=== PATIENT | female | born 1990 | race Caucasian/White ===

== ENCOUNTER 2018-03-06 09:34 | Emergency (ER) | payer BC ==
[~2018-03-06] VITALS: Ht 157.5 cm; Wt 59.0 kg
[2018-03-06] MEDS ORDERED: SYNTHROID50 MCG PO (09:49)
[2018-03-06] MEDS ORDERED: BRINTELLIX10 MG PO (09:49)
[2018-03-06 10:21] LABS: URINE BILIRUBIN NEGATIVE (Negative); URINE BLOOD NEGATIVE (Negative); URINE CLARITY CLEAR; URINE COLOR YELLOW; URINE GLUCOSE-RANDOM NEGATIVE (Negative); URINE KETONES NEGATIVE (Negative); URINE LEUKOCYTES-REFLEX 1+ (Negative); URINE NITRITE-REFLEX NEGATIVE (Negative); URINE PROTEIN NEGATIVE (Negative); URINE SPECIFIC GRAVITY <= 1.005 (1.005-1.030); URINE UROBILINOGEN 0.2 E.U./dl (0.2-1.0)
[2018-03-06 10:22] LABS: ABSOLUTE LYMPHOCYTES 1.5 thou/uL (0.8-5.3); ABSOLUTE MONOCYTES 0.5 thou/uL (0.0-1.2); ABSOLUTE NEUTROPHILS 4.7 thou/uL (1.6-8.1); BASOPHILS 0.5 %; EOSINOPHILS 0.6 %; HEMATOCRIT 42.4 % (37.0-47.0); HEMOGLOBIN 14.1 gm/dL (12.0-15.0); LYMPHOCYTES 22.4 %; MCH 28.9 pg (26.0-34.0); MCHC 33.2 g/dL (28.0-37.0); MCV 87.2 fL (80.0-100.0); MONOCYTES 7.1 %; MPV 8.9 fl. (7.2-11.1); NUCLEATED RBCS 0 /100WBC; PLATELET COUNT* 316 thou/uL (150-400); POLYS 69.4 %; RBC 4.86 mil/uL (4.20-5.00); RDW-CV 13.5 % (10.5-14.5); WBC 6.8 thou/uL (4.0-11.0)
[2018-03-06] MEDS ORDERED: FOLBIC RF TABL1 EACH PO (10:24)
[2018-03-06 10:33] LABS: BACTERIA-REFLEX 1-9 Few /HPF (None Seen); CASTS None Seen /LPF (None Seen); CRYSTALS None Seen /LPF (None Seen); MUCUS 0-3 Light strn/LPF (None Seen); SQUAMOUS 4-10 Moderate /LPF (0-3); URINE RBC 0-2 Rare /HPF (0-2); URINE WBC-REFLEX 6-15 Few /HPF (0-5)
[2018-03-06 10:33] LABS: APTT 26.6 Seconds (25.0-31.3); CALCIUM 9.2 mg/dL (8.5-10.1); CREATININE 0.9 mg/dL (0.6-1.3); POTASSIUM 4.5 mmol/L (3.5-5.1)
[2018-03-06 10:37] LABS: ALBUMIN 3.8 g/dL (3.4-5.0); TOTAL BILIRUBIN 0.4 mg/dL (<0.1-1.0); TOTAL PROTEIN 7.4 g/dL (6.4-8.2)
[2018-03-06 10:37] LABS: AMP/METHAMP Negative (Negative); BARBITURATES Negative (Negative); BENZODIAZEPINES Negative (Negative); COCAINE Negative (Negative); METHADONE Negative (Negative); OPIATES Negative (Negative); PCP Negative (Negative); THC Negative (Negative)
[2018-03-06 10:40] LABS: ACETAMINOPHEN < 2 ug/mL (10-30); ALCOHOL < 10 mg/dL (<10); SALICYLATE < 2.8 mg/dL (2.8-20.0)
[2018-03-06] MEDS ORDERED: CIPROFLOXACIN500 M1 PO (11:07)
[2018-03-06 11:28] VITALS: BP 115/72
--- NOTE | 2018-03-06 17:27 | EKG ---
[place] [address] ELECTROCARDIOGRAM REPORT Name: CHRISTI ALVAREZ [id number] Admission: 03/06/18 Attend Phys: Discharge: 03/06/18 Date of : 88 Report #: [id number] THIS REPORT FOR: //name// [facility] ED Test Date: 2018-03-06 Test Time: 10:27:28 Pat Name: CHRISTI ALVAREZ Department: Room: Gender: F [employer] Operator: : 1990 Requested By: Alex Hemphill Order Number: [id number] MD: Jeffrey Holland Measurements Intervals [place] Rate: 73 P: 28 LA: 127 QRS: 4 QRSD: 88 T: 31 QT: 395 QTc: 436 Interpretive Statements Sinus rhythm No previous ECG available for comparison Electronically Signed On 03-06-2018 17:27:22 CDT by Jeffrey Holland [email or web address] <ELECTRONICALLY SIGNED> By: Jeffrey Holland MD, [facility] 03/06/18 1727 1027 1027 Jeffrey Holland MD, FACC /EPI
== END 2018-03-06 11:29 | disposition home or self-care (01) ==
LOC: M.ERS 09:34
PROVIDERS: Family Medicine
DX: F41.9 Anxiety disorder, unspecified (principal); N39.0 Urinary tract infection, site not specified; E03.9 Hypothyroidism, unspecified; Z88.1 Allergy status to other antibiotic agents; Z88.0 Allergy status to penicillin